=== PATIENT | female | born 1975 | race Caucasian/White ===

== ENCOUNTER → 2019-08-12 11:51 | Outpatient (CLI) | payer BC, SELFPAY ==
--- NOTE | ~2019-08-12 | XR_ITS ---
XR elbow LT 2V DATE: 08/12/2019 12:06 INDICATION: Left elbow pain TECHNIQUE: AP and lateral views COMPARISON: None FINDINGS: No fracture or dislocation or joint effusion. There is mild osteoarthritis. There is mild dorsal soft tissue swelling; mild olecranon bursitis can't be excluded. IMPRESSION: Mild osteoarthritis Mild olecranon bursitis Reviewed, dictated and finalized at location A.
--- NOTE | ~2019-08-12 | XR_ITS ---
XR hip LT 2V w AP pelvis DATE: 08/12/2019 12:06 INDICATION: Left hip pain TECHNIQUE: AP pelvis. AP and lateral views of left hip COMPARISON: None FINDINGS: IUD is noted. No pelvic fracture or bone destruction. The pubic symphysis and sacroiliac joints are intact. No frac ture, dislocation, avascular necrosis or bone destruction of the left hip. Left hip joint space appea rs well preserved. IMPRESSION: No significant abnormality of the left hip Reviewed, dictated and finalized at location A.
== END ==
PROVIDERS: PCP Family Medicine; Visit Provider Physician Assistant
DX: M25.552 Pain in left hip (principal); Z91.81 History of falling; M25.522 Pain in left elbow; M19.022 Primary osteoarthritis, left elbow; M70.22 Olecranon bursitis, left elbow
CPT/HCPCS: 73070; 73502; 73521

== ENCOUNTER → 2020-02-09 10:55 | Outpatient (CLI) | payer BC, SELFPAY ==
--- NOTE | ~2020-02-09 | US_ITS ---
EXAMINATION: US transvaginal DATE: 02/09/2020 11:24 INDICATION: Right lower quadrant pain Comparison:No prior studies for comparison. TECHNIQUE: Multiple endovaginal sonographic images of the pelvis performed. FINDINGS: The uterus measures 7.8 x 4.3 x 4 cm. The endometrial complex measures 5 mm. There is an IU D in the endometrium. The right ovary measures 1.6 x 1.6 x 1.4 cm and the left ovary measures 1.8 x 1.1 x 1.6 cm. There ar e small follicles in each ovary. There is no free fluid in the pelvis. There are no abnormal masses seen on either side. IMPRESSION: 1. Unremarkable pelvic ultrasound. Reviewed, dictated and finalized at location A.
== END ==
PROVIDERS: Visit Provider Obstetrics & Gynecology Gynecology
DX: R10.31 Right lower quadrant pain (principal)
CPT/HCPCS: 76830

== ENCOUNTER 2020-04-06 14:37 | Outpatient (CLI) | payer BC, SELFPAY ==
[2020-04-06 15:38] LABS: Basophils Absolute Auto 0.1 K/mm3 (0.0-0.1); Basophils Percent Auto 0.7 % (0.2-1.2); Eosinophils Absolute Auto 0.4 K/mm3 (0-0.3); Eosinophils Percent Auto 5.3 % (0-4.4); Hematocrit 47.5 % (37.0-47.0); Hemoglobin 15.5 g/dL (12.0-15.0); Immature Granulocyte Absolute 0.05 K/mm3 (0.00-0.031); Immature Granulocyte Percent A 0.6 % (0-0.5); Lymphocytes Absolute Auto 2.12 K/mm3 (0.9-3.2); Lymphocytes Percent Auto 25.9 % (18.3-44.2); Mean Corpuscular HGB Conc 32.6 g/dl (32-36); Mean Corpuscular Hemoglobin 29.6 pg (26-34); Mean Corpuscular Volume 90.8 fl (80-100); Mean Platelet Volume 10.5 fl (7.4-10.4); Monocytes Absolute Auto 0.5 K/mm3 (0.1-0.6); Monocytes Percent Auto 6.6 % (2.6-8.5); Neutrophils Percent Auto 60.9 % (45.5-73.1); Platelet Count Result 278 k/mm3 (150-375); Red Blood Count 5.23 M/mm3 (4.2-5.4); Red Cell Distribution Width 12.2 % (11.5-14.5); White Blood Count 8.2 K/mm3 (4.5-10.0)
[2020-04-06 15:54] LABS: Alanine Aminotransferase 18 U/L (4-35); Albumin Level 4.6 g/dL (3.5-5.1); Alkaline Phosphatase 79 U/L (38-126); Anion Gap 9 mmol/L (8-16); Aspartate Amino Transferase 26 U/L (14-36); Bilirubin,Total 0.4 mg/dL (0.2-1.3); Blood Urea Nitrogen 9 mg/dL (7-17); Calcium 9.5 mg/dL (8.4-10.2); Carbon Dioxide 32 mmol/L (22-30); Chloride 101 mmol/L (98-107); Estimated Glomerular Filt Rate > 60; Glucose 90 mg/dL (65-105); Potassium 4.2 mmol/L (3.4-5.0); Sodium 142 mmol/L (137-145)
[2020-04-06 18:44] LABS: Hemoglobin A1C 4.6 % (<5.7)
== END 2020-04-06 14:38 | disposition home or self-care (01) ==
PROVIDERS: PCP Family Medicine; Visit Provider Nurse Practitioner Family
DX: R63.5 Abnormal weight gain (principal); R53.83 Other fatigue; F41.9 Anxiety disorder, unspecified; Z83.3 Family history of diabetes mellitus; O24.419 Gestational diabetes mellitus in pregnancy, unspecified control; R20.0 Anesthesia of skin; R20.2 Paresthesia of skin
CPT/HCPCS: 36415; 80053; 83036; 84443; 85025

== ENCOUNTER 2020-05-05 07:34 | Outpatient (CLI) | payer BC, SELFPAY ==
--- NOTE | ~2020-05-05 | CT_ITS ---
EXAMINATION: CT hip LT wo con DATE: 05/05/2020 08:02 INDICATION: Left posterior thigh mass. TECHNIQUE: Computed tomography (CT) of the left hip was performed without intravenous contrast. Autom ated exposure control and iterative reconstruction technique were employed. The dose-length product w as 922.49 mGy-cm. COMPARISON: Pelvis and left hip radiographs 08/12/2019 FINDINGS: There is an intrauterine device in expected position. There are no pathologically enlarged lymph nodes. There is no free intraperitoneal fluid. There is mild lumbar spondylosis. There is mild left hip osteoarthrosis. There is subcutaneous fat stranding in lateral and posterior left thigh. At the inferior margin of the abnormality is a 18 x 9 mm mass-like region. IMPRESSION: 1. Left thigh subcutaneous fat stranding and small mass, most likely hematoma and inflammation/scarri ng. Reviewed, dictated and finalized at location A. [employer] IMPRESSION: 1. Left thigh subcutaneous fat stranding and small mass, most likely hematoma a nd inflammation/scarring.
== END 2020-05-05 07:35 | disposition home or self-care (01) ==
LOC: ANHIMG 07:39
PROVIDERS: PCP Family Medicine; Visit Provider Surgery
DX: M25.552 Pain in left hip (principal); R22.42 Localized swelling, mass and lump, left lower limb
CPT/HCPCS: 73700

== ENCOUNTER 2021-03-29 10:40 | Emergency (ER) | payer BC, SELFPAY ==
[2021-03-29] VITALS (15 sets, daily range): BP systolic 114–143; BP diastolic 59–97; PULSE 70–83; RESP 16–18; TEMP 36.5; O2SAT 97–100
--- NOTE | ~2021-03-29 | CT_ITS ---
EXAMINATION: CT abdomen pelvis wo con EXAM DATE: 03/29/2021 12:40 INDICATION: Right flank pain. TECHNIQUE: Spiral CT of the abdomen and pelvis was performed without contrast. Axial, coronal and sag ittal images were reviewed. The dose-length product (DLP) for this examination was 602.88 mGy-cm. T he exposure was tailored according to patient size (auto mA exposure control), and iterative reconstr uction (ASIR) was used as additional dose reduction technique. Comparison is made to prior examinatio n from 03/18/2007. FINDINGS: There is no nephrolithiasis or hydronephrosis. There is IUD which appears to be centrally located within the endometrium, expected position. The bladder is unremarkable. The liver, spleen, adrenal glands and pancreas are unremarkable. There are cholecystectomy clips. There is no retrope ritoneal or pelvic lymphadenopathy. Probable identification of a normal appendix. No pericecal inflammation. There is mild scattered colo sally diverticulosis. There is no adjacent inflammatory change to suggest diverticulitis. The stomach and small bowel are unremarkable. There is expected amount of colonic stool. No free intraperitone al gas. The heart is normal in size. There are no pericardial or pleural effusions. The lung base s are unremarkable. There are no osteoblastic or osteolytic lesions identified. IMPRESSION: 1. No nephrolithiasis, hydronephrosis or acute intra-abdominal findings. 2. Mild scattered colonic diverticulosis. Reviewed, dictated and finalized at location B.
[2021-03-29 10:59] LABS: Basophils Absolute Auto 0.1 K/mm3 (0.0-0.1); Basophils Percent Auto 0.7 % (0.2-1.2); Eosinophils Absolute Auto 0.3 K/mm3 (0-0.3); Eosinophils Percent Auto 3.2 % (0-4.4); Hematocrit 50.4 % (37.0-47.0); Hemoglobin 16.7 g/dL (12.0-15.0); Immature Granulocyte Absolute 0.03 K/mm3 (0.00-0.031); Immature Granulocyte Percent A 0.3 % (0-0.5); Lymphocytes Absolute Auto 1.75 K/mm3 (0.9-3.2); Lymphocytes Percent Auto 18.3 % (18.3-44.2); Mean Corpuscular HGB Conc 33.1 g/dl (32-36); Mean Corpuscular Hemoglobin 30.7 pg (26-34); Mean Corpuscular Volume 92.6 fl (80-100); Mean Platelet Volume 9.9 fl (7.4-10.4); Monocytes Absolute Auto 0.7 K/mm3 (0.1-0.6); Monocytes Percent Auto 6.9 % (2.6-8.5); Neutrophils Absolute Auto 6.7 K/mm3 (1.3-6.7); Neutrophils Percent Auto 70.6 % (45.5-73.1); Platelet Count Result 290 k/mm3 (150-375); Red Blood Count 5.44 M/mm3 (4.2-5.4); Red Cell Distribution Width 13.4 % (11.5-14.5); White Blood Count 9.5 K/mm3 (4.5-10.0)
--- NOTE | 2021-03-29 11:18 | ED.BACK ---
HPI - Back Pain/Injury General Chief Complaint: Back Pain/Injury Stated Complaint: pain in right kidney area Time Seen by Provider: 03/29/21 11:06 Source: patient Mode of arrival: ambulatory Limitations: no limitations History of Present Illness HPI Narrative: Patient is a 46-year-old female complaining of right flank pain, 10 out of 10, sharp, nonradiating started today. Patient denies any chest pain, shortness of breath, abdominal pain, nausea, vomiting, diarrhea, urinary symptoms, fever chills Related Data Allergies Allergy/AdvReac Type Severity Reaction Status Date / Time Penicillins Allergy Hives Verified 03/29/21 09:55 Review of Systems Review of Systems: All systems reviewed & are unremarkable except as noted in HPI and below Constitutional: Constitutional: Denies body ache(s), Denies chills, Denies excessive sweating, Denies fatigue, Denies fever(s), Denies headache(s), Denies lethargy, Denies malaise, Denies weakness and Denies weight loss Eyes: Eyes: Denies blurry vision, Denies change in vision and Denies loss of vision ENT: Denies dizziness, Denies ear discharge, Denies headache(s), Denies lip swelling, Denies epistaxis, Denies nasal congestion, Denies neck pain, Denies throat swelling and Denies tongue swelling Cardiovascular: Cardiovascular: Denies chest pain, Denies chest pain at rest, Denies chest pain with activity, Denies diaphoresis, Denies rapid heart rate, Denies edema, Denies irregular heart rhythm, Denies lightheadedness, Denies palpitations, Denies dyspnea and Denies dyspnea on exertion Respiratory: Respiratory: Denies chest congestion, Denies cough, Denies hemoptysis, Denies dyspnea and Denies dyspnea on exertion Gastrointestinal: Gastrointestinal: Denies abdominal pain, Denies melena, Denies hematochezia, Denies diarrhea, Denies nausea, Denies vomiting and Denies hematemesis Musculoskeletal: Musculoskeletal: Denies abnormal gait, Denies deformity, Denies joint swelling, Denies limited range of motion, Denies neck pain and Denies numbness Neurologic: Denies Abnormal speech present, Denies abnormal gait, Denies confusion, Denies dizziness, Denies headache(s), Denies focal weakness, Denies loss of vision, Denies numbness, Denies Other visual disturbances, Denies Sensory deficit (Neuro) and Denies weakness Psychiatric: Psychiatric: Denies confusion, Denies depression, Denies auditory hallucinations, Denies homicidal ideation and Denies suicidal ideation Endocrine: Endocrine: Denies cold intolerance, Denies excessive sweating, Denies fatigue, Denies heat intolerance and Denies palpitations Hematologic/Lymphatic: Hematologic/Lymphatic: Denies easy bleeding and Denies easy bruising Allergic/Immunologic: Allergic/Immunologic: Denies lip swelling, Denies throat swelling and Denies tongue swelling PMFSH Past Medical History Medical History Cold sore Cyst of finger Depression VENITA (generalized anxiety disorder) Hematoma History of gestational diabetes Hypothyroid Left elbow pain Left hip pain (normal spontaneous vaginal delivery) Seizure Status post fall Viral URI Surgical History Surgical History H/O dilation and curettage 2014 H/O tubal ligation History of Family History Family History Mother Diabetes mellitus Father Hypertension Family history of cardiovascular disease Social History Social History Smoking status: Never smoker Tobacco type: cigarettes Second hand tobacco smoke exposure: Yes Smoking end date: 06/03/16 Alcohol intake: current Drinks per week: 2 Alcohol use details: States 3-4 nights per week and not sure how much Substance use: current Substance use type: marijuana Gender identity (if verbalized by the patient): Female
[2021-03-29 11:20] LABS: Anion Gap 11 mmol/L (8-16); Blood Urea Nitrogen 10 mg/dL (7-17); Calcium 10.1 mg/dL (8.4-10.2); Carbon Dioxide 25 mmol/L (22-30); Chloride 105 mmol/L (98-107); Estimated CRCL calculation 114 ml/min; Estimated Glomerular Filt Rate > 60; Glucose 88 mg/dL (65-110); Potassium 4.2 mmol/L (3.4-5.0); Sodium 141 mmol/L (137-145)
[2021-03-29 11:48] LABS: Add Urine Microscopic? YES; Appearance Urine Cloudy (Clear); Bacteria Urine 1+ /hpf; Bilirubin Urine Negative (Negative); Blood Urine 2+ (Negative); Color Urine Yellow (Yellow); Glucose Urine UA Negative (Negative); Ketones Urine Negative (Negative); Leukocyte Esterase Ur 2+ LEU/UL (Negative); Mucus Urine Few /lpf; Nitrate Urine Positive (Negative); Protein Urine Negative (Negative); Specific Grav Ur 1.012 (1.001-1.035); Squamous Epithelial Cell Urine Few /hpf (Few); Urobilinogen Urine Negative mg/dL (<2.0)
[2021-03-29] MEDS: SODIUM CHLORIDE 0.9% IV 1,000 ML 999 ML IV CONT (12:26)
[2021-03-29] MEDS: PROMETHAZINE HCL 25 MG/ML AMPUL 12.5 MG IV PUSH (12:27)
[2021-03-29] MEDS: KETOROLAC 30 MG/ML VIAL (*BKC) IV PUSH (12:29)
== END 2021-03-29 13:57 | disposition home or self-care (01) ==
PROVIDERS: Emergency Medicine; Emergency Provider Emergency Medicine; PCP Family Medicine
DX: N39.0 Urinary tract infection, site not specified (principal); F32.9 Major depressive disorder, single episode, unspecified; F41.9 Anxiety disorder, unspecified; E03.9 Hypothyroidism, unspecified
CPT/HCPCS: 36415; 74176; 80048; 81001; 85025; 87077; 87086; 87186; 96361; 96374; 96375; 99284; J1885; J2550; J7030

== ENCOUNTER 2021-04-07 09:20 | Outpatient (CLI) | payer BC, SELFPAY ==
[2021-04-07 09:59] LABS: Add Urine Microscopic? YES; Appearance Urine Clear (Clear); Bilirubin Urine Negative (Negative); Blood Urine 2+ (Negative); Color Urine Yellow (Yellow); Glucose Urine UA Negative (Negative); Ketones Urine Negative (Negative); Leukocyte Esterase Ur Negative LEU/UL (NEGATIVE); Mucus Urine Rare /lpf; Nitrate Urine Negative (Negative); Protein Urine Negative (Negative); Specific Grav Ur 1.012 (1.001-1.035); Squamous Epithelial Cell Urine Occasional /hpf (Few); Urobilinogen Urine Negative mg/dL (<2.0); WBC Urine 0-3 /hpf (0-3)
== END 2021-04-07 09:21 | disposition home or self-care (01) ==
LOC: ANHLAB 09:25
PROVIDERS: PCP Family Medicine; Visit Provider Physician Assistant
DX: N39.0 Urinary tract infection, site not specified (principal)
CPT/HCPCS: 81001; 87086

== ENCOUNTER → 2021-07-11 12:25 | Outpatient (CLI) | payer BC, SELFPAY ==
--- NOTE | ~2021-07-11 | MM_ITS ---
EXAMINATION: MM screening lenny BI w faisal HISTORY: Screening TECHNIQUE: Craniocaudal and mediolateral oblique 3-D tomosynthesis images were obtained and synthetic 2-D images were generated. CAD analysis was submitted and interpreted. COMPARISON: Comparison to multiple prior studies sequentially, with oldest reviewed study dated 03/03. BREAST PARENCHYMAL COMPOSITION: Breast composed of scattered areas of fibroglandular density FINDINGS: There is no evidence of suspicious mass, calcification, or architectural distortion to sugg est malignancy in either breast. There has been no suspicious interval change. IMPRESSION: 1. No mammographic evidence of malignancy. 2. Recommend routine screening mammography in one year. BI-RADS Category 1: Negative Reviewed, dictated and finalized at location A. FACTURING ADVISOR
== END ==
PROVIDERS: PCP Family Medicine; Visit Provider Obstetrics & Gynecology Gynecology
DX: Z12.31 Encounter for screening mammogram for malignant neoplasm of breast (principal)
CPT/HCPCS: 77063; 77067

== ENCOUNTER → 2021-10-06 09:37 | Outpatient (CLI) | payer BC, SELFPAY ==
--- NOTE | ~2021-10-06 | US_ITS ---
EXAMINATION: US transvaginal DATE: 10/06/2021 10:06 INDICATION: Abnormal uterine bleeding, missing IUD TECHNIQUE: Multiple endovaginal sonographic images of the pelvis were obtained. COMPARISON: CT, 03/29/2021 FINDINGS: The uterus measures 8.6 x 3.7 x 4.8 cm. An IUD is seen and is in expected position. The end ometrial complex measures 5 mm. The right ovary measures 2.4 x 1.7 x 1.8 cm. The left ovary measures 1.8 x 1.8 x 2.1 cm. There is normal vascular flow in the ovaries. There is no free fluid in the pelvi s. IMPRESSION: 1. IUD in expected position. Reviewed, dictated and finalized at location B.
== END ==
PROVIDERS: PCP Obstetrics & Gynecology Gynecology; Visit Provider Obstetrics & Gynecology Gynecology
DX: N93.8 Other specified abnormal uterine and vaginal bleeding (principal); Z97.5 Presence of (intrauterine) contraceptive device
CPT/HCPCS: 76830

== ENCOUNTER 2022-04-24 10:22 | Outpatient (CLI) | payer BC, SELFPAY ==
--- NOTE | ~2022-04-24 | CT_ITS ---
EXAMINATION: CT abdomen pelvis wo/w con DATE: 04/24/2022 11:01 INDICATION: Hematuria. Right lower quadrant abdominal pain. Right flank pain. TECHNIQUE: Computed tomography (CT) of the abdomen and pelvis was performed without and with intraven ous contrast using a total of 130 mL Omnipaque-350 intravenous contrast with a double-bolus technique for simultaneous opacification of the renal parenchyma and renal collecting system. Automated exposu re control and iterative reconstruction technique were employed. The dose-length product was 1540.59 mGy-cm. COMPARISON: CT abdomen and pelvis 03/29/2021 FINDINGS: The visualized portions of the lung bases demonstrate minimal atelectasis. No pleural effusion. The h eart size is normal. No pericardial effusion. The liver is normal. There are changes of cholecystecto my. The spleen, pancreas, and adrenal glands are normal. The kidneys are normal. There is no urolithi asis. The ureters are well opacified and are normal. There is an intrauterine device in expected posi tion. There is diverticulosis of the colon without evidence of diverticulitis. The appendix is normal . There are no pathologically enlarged lymph nodes. There is no free intraperitoneal fluid. The bladd er is normal. There is mild thoracolumbar spondylosis. IMPRESSION: 1. No etiology for the patient's symptoms. Reviewed, dictated and finalized at location A. 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
== END 2022-04-24 10:23 | disposition home or self-care (01) ==
PROVIDERS: PCP Family Medicine; Visit Provider Nurse Practitioner Family
DX: R10.31 Right lower quadrant pain (principal); R31.9 Hematuria, unspecified
CPT/HCPCS: 74178; Q9967